=== PATIENT | male | born 1990 | race Caucasian/White ===

== ENCOUNTER → 2017-01-27 | Outpatient (CLI) | payer OTHER | LOC: BMCIMAGING 14:12 | PROVIDERS: ATTEND Nurse Practitioner Adult Health | DX: M79.632 Pain in left forearm (principal) ==

== ENCOUNTER 2017-02-14 18:52 | Emergency (ER) | payer OTHER ==
[~2017-02-14 18:52] MED LIST: RANITIDINE 50 MG/2 ML VIAL ONE; methylPREDNISolone SOD SUCC 125 MG/2 ML VIAL ONE
[2017-02-14 18:58] VITALS: TEMP 98.1
[2017-02-14] MEDS ORDERED: methylPREDNISolone SOD SUCC 125 MG/2 ML VIAL IVP ONE (18:59)
[2017-02-14] MEDS ORDERED: RANITIDINE 50 MG/2 ML VIAL IVP ONE (18:59)
[2017-02-14] MEDS ORDERED: NS 1,000 ML IV ONE (18:59)
--- NOTE | 2017-02-14 19:02 | EDPHY ---
H & P Stated Complaint: stung by bee/sob throat tightening/tachycardia Time Seen by Provider: 02/14/17 18:55 HPI/ROS: CHIEF COMPLAINT: Bee sting allergy HISTORY OF PRESENT ILLNESS: The patient is a 26-year-old man comes into the emergency department after being stung by a "yellow jacket". He states that he has been stung by bees multiple times without having any allergic symptoms. Today however he immediately became itchy in urticaria. He then developed some swelling of his lips. No nausea vomiting. No shortness of breath. He also has swelling of his eyelids. Came immediately to the emergency department. He denies other medical Conditions. REVIEW OF SYSTEMS: Constitutional: denies: chills, fever, recent illness, recent injury EENTM: denies: blurred vision, double vision, nose congestion Respiratory: denies: cough, shortness of breath Cardiac: denies: chest pain, irregular heart rate, lightheadedness, palpitations Gastrointestinal/Abdominal: denies: abdominal pain, diarrhea, nausea, vomiting, blood streaked stools Genitourinary: denies: dysuria, frequency, hematuria, pain Musculoskeletal: denies: joint pain, muscle pain Skin: denies: lesions, rash, jaundice, bruising Neurological: denies: headache, numbness, paresthesia, tingling, dizziness, weakness Hematologic/Lymphatic: denies: blood clots, easy bleeding, easy bruising Immunologic/allergic: denies: HIV/AIDS, transplant EXAM: GENERAL: Well-appearing, well-nourished and in no acute distress. HEAD: Atraumatic, normocephalic. EYES: Mild swelling of upper eyelids, Pupils equal round and reactive to light , extraocular movements intact, sclera anicteric, conjunctiva are normal. ENT: Mild swelling in upper and lower lip, TMs normal, nares patent, oropharynx clear without exudates. Moist mucous membranes. NECK: Normal range of motion, supple without lymphadenopathy or JVD. LUNGS: Breath sounds clear to auscultation bilaterally and equal. No wheezes rales or stridor . HEART: Regular rate and rhythm without murmurs, rubs or gallops. ABDOMEN: Soft, nontender, normoactive bowel sounds. No guarding, no rebound. No masses appreciated. BACK: No CVA tenderness, no spinal tenderness, step-offs or deformities EXTREMITIES: Normal range of motion, no pitting or edema. No clubbing or cyanosis. NEUROLOGICAL: Cranial nerves II through XII grossly intact. Normal speech, normal gait. 5/5 strength, normal movement in all extremities, normal sensation PSYCH: Normal mood, normal affect. SKIN: Diffuse urticaria Source: Patient Exam Limitations: No limitations - Personal History Current Tetanus/Diphtheria Vaccine: Unsure - Medical/Surgical History Hx Asthma: No Hx Chronic Respiratory Disease: No Hx Diabetes: No Hx Cardiac Disease: No Hx Renal Disease: No Hx Cirrhosis: No Hx Alcoholism: No Hx HIV/AIDS: No Hx Splenectomy or Spleen Trauma: No Other PMH: htn - Family History Significant Family History: No pertinent family hx - Social History Smoking Status: Never smoked Alcohol Use: Sober Drug Use: None Constitutional: Initial Vital Signs Temperature (C) 36.7 C 02/14/17 18:56 Heart Rate 155 H 02/14/17 18:56 Respiratory Rate 28 H 02/14/17 18:56 Blood Pressure 139/87 H 02/14/17 18:56 O2 Sat (%) 95 02/14/17 18:56 O2 Delivery Mode Room Air Allergies/Adverse Reactions: levofloxacin [From Levaquin] Allergy (Verified 02/14/17 18:55) Home Medications: Medication Instructions Recorded Marijuana 08/08/16 EPINEPHRINE [EPIPEN] 0.3 mg IM ONCE #2 syr 02/14/17 Famotidine [Pepcid] 40 mg PO HS #10 tablet 02/14/17 diphenhydrAMINE [Benadryl 50 MG 50 mg PO Q4-6PRN PRN #30 cap 02/14/17 (OTC)] predniSONE 60 mg PO DAILY #9 tab 02/14/17 Medical Decision Making ED Course/Re-evaluation: 8:30 p.m. the patient is looking much better. He required 2 doses of IM epinephrine. His edema is resolved. His urticaria is resolved. We will continue to observe. I will discharge the patient with Benadryl, prednisone, H2 blockers and epi pens. Differential Diagnosis: Partial list of the Differential diagnosis considered include but were not limited to; anaphylaxis, urticaria and although unlikely based on the history and physical exam, I also considered cellulitis, angioedema infection. I discussed these differential diagnoses and the plan with the patient as well as the usual and expected course. The patient understands that the diagnosis is provisional and that in medicine we are not always correct and that further workup is often warranted. Usual and customary warnings were given. All of the patient's questions were answered. The patient was instructed to return to the emergency department should the symptoms at all worsen or return, otherwise to followup with the physician as we discussed. - Data Points Medications Given: Discontinued Medications Diphenhydramine HCl (Benadryl Injection) 50 mg IVP EDNOW ONE Stop: 02/14/17 19:00 Last Admin: 02/14/17 18:59 Dose: 50 mg Epinephrine HCl (Epinephrine) 0.3 mg IM EDNOW ONE Stop: 02/14/17 19:00 Last Admin: 02/14/17 18:57 Dose: 0.3 mg Epinephrine HCl (Epinephrine) 0.3 mg IM EDNOW ONE Stop: 02/14/17 19:31 Last Admin: 02/14/17 19:35 Dose: 0.3 mg Sodium Chloride (Ns) 1,000 mls @ 0 mls/hr IV ONCE ONE; Wide Open PRN Reason: Protocol Stop: 02/14/17 19:00 Last Admin: 02/14/17 19:20 Dose: 1,000 mls Methylprednisolone Sodium Succinate (Solu-Medrol) 125 mg IVP EDNOW ONE Stop: 02/14/17 19:00 Last Admin: 02/14/17 19:00 Dose: 125 mg Prednisone (Prednisone) 60 mg PO EDNOW ONE Stop: 02/14/17 20:38 Last Admin: 02/14/17 20:37 Dose: 60 mg Ranitidine HCl (Zantac) 50 mg IVP EDNOW ONE Stop: 02/14/17 19:00 Last Admin: 02/14/17 19:03 Dose: 50 mg Departure - Departure Disposition: Home, Routine, Self-Care Clinical Impression: Acute anaphylaxis Qualifiers: Encounter type: initial encounter Qualified Code(s): T78.2XXA - Anaphylactic shock, unspecified, initial encounter Condition: Fair Instructions: Insect Bite or Sting (ED), Anaphylaxis (ED) Referrals: Patient,NotPresent [Unknown] - As per Instructions Yenifer Melendez MD [place] [place] - As per Instructions Prescriptions: diphenhydrAMINE [Benadryl 50 MG (OTC)] 50 mg PO Q4-6PRN PRN #30 cap PRN Reason: Itching EPINEPHRINE [EPIPEN] 0.3 mg IM ONCE #2 syr Famotidine [Pepcid] 40 mg PO HS #10 tablet predniSONE 60 mg PO DAILY #9 tab
[2017-02-14 19:27] VITALS: O2SAT 97
[2017-02-14] MEDS ORDERED: predniSONE 20 MG TAB ONE (20:34)
[2017-02-14] MEDS ORDERED: predniSONE 20 MG TAB PO ONE (20:37)
[2017-02-14 21:31] VITALS: BP 128/73; PULSE 89; RESP 16
== END 2017-02-14 21:31 | disposition home or self-care (01) ==
DX: T78.2XXA Anaphylactic shock, unspecified, initial encounter (principal); I10 Essential (primary) hypertension
CPT/HCPCS: 96374; J0171; J1200; J2780